=== PATIENT | male | born 1985 | race American Indian/Alaskan Native ===

== ENCOUNTER 2017-04-25 08:41 | Emergency (ER) | payer OTHER ==
[2017-04-25 09:45] LABS: BASOPHIL 0.3 % (0-2); EOSINOPHIL 1.6 % (0-5); HCT 39.1 % (42.0-52.0); HGB 14.2 g/dl (13.2-18.0); MCH 29.5 pg (25.0-31.0); MCHC 36.3 g/dL (32.0-36.0); MCV 81.1 fL (78.0-100.0); MONOCYTE 9.1 % (0-12); MPV 8.7 fL (6.0-9.5); PLT 309 K/uL (150-400); RBC 4.82 M/uL (4.70-6.00); RDW 13.3 % (11.5-14.0); WBC 10.6 K/uL (4.0-10.5)
[2017-04-25 09:59] LABS: LACTIC ACID 1.3 mmol/L (0.5-2.2)
[2017-04-25 10:03] LABS: ALBUMIN 4.4 g/dL (3.5-5.0); BILIRUBIN - TOTAL 0.7 mg/dL (0.1-1.0); CREATININE 0.8 mg/dL (0.7-1.2); GLOBULIN (CALCULATION) 2.7 g/dL (2.2-4.2); POTASSIUM 3.4 mmol/L (3.5-5.1); TOTAL PROTEIN 7.1 g/dL (6.4-8.3)
[2017-04-25 11:03] LABS: AMPHETAMINES POSITIVE (NEGATIVE); BARBITURATES NEGATIVE (NEGATIVE); BENZODIAZEPINES NEGATIVE (NEGATIVE); COCAINE NEGATIVE (NEGATIVE); MARIJUANA (THC) NEGATIVE (NEGATIVE); METHADONE NEGATIVE (NEGATIVE); TRICYCLIC ANTIDEPRESSANT NEGATIVE (NEGATIVE)
== END 2017-04-25 11:10 | disposition home or self-care (01) ==
LOC: FER 08:41
PROVIDERS: Internal Medicine
DX: L03.113 Cellulitis of right upper limb (principal); M79.602 Pain in left arm; F19.10 Other psychoactive substance abuse, uncomplicated; F17.200 Nicotine dependence, unspecified, uncomplicated; W19.XXXA Unspecified fall, initial encounter
CPT/HCPCS: 36415; 73090; 80053; 80305; 82550; 83605; 85025; 85651; 87040; G0480; J1885

== ENCOUNTER 2017-04-29 18:27 | Emergency (ER) | payer OTHER ==
[2017-04-29 20:14] LABS: BASOPHIL 0.5 % (0-2); EOSINOPHIL 3.7 % (0-5); HCT 41.5 % (42.0-52.0); HGB 14.6 g/dl (13.2-18.0); LYMPHOCYTE 23.3 % (15-48); MCH 28.9 pg (25.0-31.0); MCHC 35.2 g/dL (32.0-36.0); MONOCYTE 6.1 % (0-12); MPV 8.4 fL (6.0-9.5); NEUTROPHIL 66.4 % (41-80); PLT 348 K/uL (150-400); RBC 5.06 M/uL (4.70-6.00); RDW 13.4 % (11.5-14.0); WBC 8.9 K/uL (4.0-10.5)
[2017-04-29 20:24] LABS: AMPHETAMINES POSITIVE (NEGATIVE); BARBITURATES NEGATIVE (NEGATIVE); BENZODIAZEPINES NEGATIVE (NEGATIVE); COCAINE NEGATIVE (NEGATIVE); MARIJUANA (THC) NEGATIVE (NEGATIVE); METHADONE NEGATIVE (NEGATIVE); TRICYCLIC ANTIDEPRESSANT NEGATIVE (NEGATIVE)
[2017-04-29 20:26] LABS: CREATININE 0.8 mg/dL (0.7-1.2)
== END 2017-04-29 23:20 | disposition home or self-care (01) ==
LOC: FER 18:27
PROVIDERS: Nurse Practitioner
DX: L03.113 Cellulitis of right upper limb (principal); F17.210 Nicotine dependence, cigarettes, uncomplicated
CPT/HCPCS: 36415; 80048; 80305; 85025; J0295; J1885; J2270; J2405

== ENCOUNTER 2022-04-18 12:30 | Emergency (ER) | payer OTHER ==
[2022-04-18] MEDS ORDERED: CEPHALEXIN500 MG PO (18:09)
[2022-04-18] MEDS ORDERED: NORCO 5-325 TA1 EACH PO (18:09)
== END 2022-04-18 18:42 | disposition home or self-care (01) ==
LOC: FER 12:30
DX: S61.213A Laceration without foreign body of left middle finger without damage to nail, initial encounter (principal); W45.8XXA Other foreign body or object entering through skin, initial encounter; Y92.89 Other specified places as the place of occurrence of the external cause; Y99.0 Civilian activity done for income or pay
CPT/HCPCS: 73120